=== PATIENT | male | born 1990 | race African-American/Black ===

== ENCOUNTER 2021-08-29 09:17 | Emergency (ER) | payer OTHER, SELFPAY ==
[2021-08-29 10:07] VITALS: BP 119/75; PULSE 84; RESP 18; TEMP 38; O2SAT 97; BMI 23.0
--- NOTE | 2021-08-29 10:55 | ED.URI ---
HPI - URI/Sore Throat General Chief Complaint: Neck Pain/Injury Stated Complaint: pain Time Seen by Provider: 08/29/21 10:52 Source: patient Mode of arrival: ambulatory Limitations: no limitations History of Present Illness HPI Narrative: 2 days of sore throat and chills with difficulty swallowing. Patient is not vaccinated against COVID or flu. patient complaining of left neck lymph node swelling MD elicited complaint: fever and sore throat Onset (ago): day(s) Consistency: constant Severity: moderate Exacerbating factors: swallowing Associated symptoms: fever, chills and sore throat Related Data Previous Rx's Medication Instructions Recorded amoxicillin 875 mg tablet 875 mg PO BID #20 tab 08/29/21 ondansetron HCl 4 mg tablet 4 mg PO Q8H PRN #10 tab 08/29/21 (Zofran) Allergies Allergy/AdvReac Type Severity Reaction Status Date / Time No Known Allergies Allergy Unverified 06/17/20 19:30 [No Known Allergies*] Review of Systems Constitutional: Constitutional: Reports no additional constitutional complaints Eyes: Eyes: Reports no additional eye complaints ENT: Denies dizziness Cardiovascular: Cardiovascular: Reports no additional cardiovascular complaints Respiratory: Respiratory: Reports as per HPI Gastrointestinal: Gastrointestinal: Reports no additional gastrointestinal complaints Musculoskeletal: Musculoskeletal: Reports no additional musculoskeletal complaints Integumentary/Breasts: Skin/Breast: Denies rash Neurologic: Reports system reviewed and no additional complaints, except as documented, Denies dizziness and Denies Sensory deficit (Neuro) Psychiatric: Psychiatric: Denies anxiety PMFSH Social History Social History Advance Directives: No Advance Directives Information Provided: No Physical Exam Vital Signs: Vital Signs: Last Vital Signs Temp 100.4 F 08/29/21 10:07 Pulse 84 08/29/21 10:07 Resp 18 08/29/21 10:07 BP 119/75 08/29/21 10:07 Pulse Ox 97 08/29/21 10:07 Body Mass Index 23.0 Const: Other: feeling ill with chills Nutritional Appearance: average body habitus Orientation/consciousness: oriented to person and patient oriented x3 Limitations: no limitations HENMT: Other: oral pharynx with erythema Head: Yes normal to inspection Ears: external ears normal and TM's normal bilaterally General nose exam: Normal external nose present Eyes: General: appearance normal, both eyes and all related structures Neck: Other: supple, left submandibular lymph node Chest: Chest palpation & inspection: normal inspection of the chest Resp: Auscultation: clear to auscultation bilaterally Cardio: Jugular venous distension: no JVD Rate: regular rate Rhythm: regular rhythm Heart sounds: S1 normal heart sound present and S2 normal heart sound present GI: Inspection: Yes normal to inspection Palpation (GI): Soft to palpation, nontender and No hepatosplenomegaly present Auscultation: normal bowel sounds : General: Yes no CVA tenderness Back/Spine/Pelvis: Back: no CVA tenderness Skin: General skin exam: no rashes or lesions noted Neuro: General: oriented to person and patient oriented x3 Cranial nerves: Yes CN's II-XII intact bilaterally Motor exam (neuro): 5/5 motor strength present throughout Sensory Exam: No Sensory deficit (Neuro) Extrem: General: Yes normal to inspection Psych: Appearance: grossly normal Course Reevaluation(s) Reevaluation #1: patient with positive strep will dc on amoxicillin and zofran Time: 12:05 MDM - URI/Sore Throat Lab Data Labs: Lab Results 08/29/21 08/29/21 Range/Units 11:16 11:17 COVID-19 ([facility]IDA) Negative (Negative) COVID-19 Clin Com See Note S. pyogenes GrpA LEANNE Positive A (Negative) Discharge Plan Discharge Clinical Impression: Strep pharyngitis Patient Disposition: Home, Self-Care Instructions: Pharyngitis (ED), Strep Throat (ED) Prescriptions: New amoxicillin 875 mg tablet 875 mg PO BID Qty: 20 RF: 0 ondansetron HCl [Zofran] 4 mg tablet 4 mg PO Q8H PRN (Reason: nausea and vomiting) Qty: 10 RF: 0 Referrals: Physician,Unknown J [Primary Care Provider] - 10 days
[2021-08-29] MEDS: Ondansetron ODT 4 MG TAB.RAPDIS TRANSLINGU (11:11)
[2021-08-29] MEDS: Acetaminophen 325 MG TABLET 975 MG PO (11:11)
[2021-08-29 11:33] LABS: IDNOW Serial# 08D9AD1C; Strep A Nucleic Acid Positive (Negative)
[2021-08-29 11:45] LABS: COVID-19 Test Negative (Negative); IDNOW Serial# 9DD0AD1C
[2021-08-29 12:23] VITALS: BP 106/57; PULSE 88; RESP 18; TEMP 38.1; O2SAT 93
[2021-08-29] MEDS: Ibuprofen 600 MG TABLET PO (12:26)
[2021-08-29] MEDS: Amoxicillin 500 MG CAPSULE 1000 MG PO (12:37)
== END 2021-08-29 12:41 | disposition home or self-care (01) ==
PROVIDERS: Emergency Provider Emergency Medicine
DX: J02.0 Streptococcal pharyngitis (principal); M54.2 Cervicalgia; R13.10 Dysphagia, unspecified; Z20.822 Contact with and (suspected) exposure to COVID-19
CPT/HCPCS: 36415; 87635; 87651; 99283; 99284

== ENCOUNTER 2021-08-30 02:03 | Emergency (ER) | payer OTHER, SELFPAY ==
[2021-08-30 03:05] VITALS: BP 109/58; PULSE 70; RESP 18; TEMP 37.6; O2SAT 93; BMI 25.1
[2021-08-30 03:31] LABS: Influenza A PCR NEGATIVE (Negative); Influenza B PCR NEGATIVE (Negative); Resp Syncy Virus RNA Qual PCR NEGATIVE (Negative); SARS COV2 PCR INHOUSE NEGATIVE (Negative)
--- NOTE | 2021-08-30 04:51 | ED.GENADULT ---
HPI - General Adult General Chief complaint: Upper Respiratory Symptoms Stated complaint: fever, flu like Time Seen by Provider: 08/30/21 04:51 Source: patient Mode of arrival: ambulatory History of Present Illness HPI narrative: 30-year-old male who was diagnosed with strep though earlier in the day and provided initial antibiotics rate presents with his significant other stating that his headache and sore throat generalized body aches worse at denies any difficulty with swallowing or breathing. Related Data Previous Rx's Medication Instructions Recorded amoxicillin 875 mg tablet 875 mg PO BID #20 tab 08/29/21 ondansetron HCl 4 mg tablet 4 mg PO Q8H PRN #10 tab 08/29/21 (Zofran) Allergies Allergy/AdvReac Type Severity Reaction Status Date / Time No Known Allergies Allergy Unverified 06/17/20 19:30 [No Known Allergies*] Review of Systems Review of Systems: Pertinent positives and negatives as stated in HPI 10 point review systems is otherwise negative. PMFSH Past Medical History Source: nursing notes reviewed Social History Social History Advance Directives: No Advance Directives Information Provided: No Physical Exam Vital Signs: Vital Signs: Last Vital Signs Temp 99 F 08/30/21 05:22 Pulse 72 08/30/21 05:22 Resp 18 08/30/21 05:22 BP 110/80 08/30/21 05:22 Pulse Ox 98 08/30/21 05:22 Body Mass Index 25.1 VITAL SIGNS: Reviewed. GENERAL: Well developed, well nourished, mild distress. HEAD: Normocephalic/atraumatic EYES: PERRLA, EOMI EARS: Ext canals without abnormality, TMs non-bulging and non-erythematous NOSE: Nares patent bilateral OROPHARYNX: no oral lesions noted, posterior pharynx erythema with noted tonsillar enlargement/erythema/exudates, no trismus NECK: Supple, +adenopathy LUNGS: Normal breath sounds. No adventitious sounds or accessory muscle use. SpO2<98> CARDIOVASCULAR: Regular rate and rhythm without noted murmurs ABDOMEN: Soft, non-tender, non-distended with bowel sounds. SKIN: Inspection of the skin reveals no rashes NEUROLOGIC: Alert and oriented x 4. Strength and sensation to light touch were grossly intact x 4. Course Course Course Narrative: 30-year-old male with history and clinical presentation consistent with strep pharyngitis, given combination analgesics and on review of all investigations negative for COVID-19. Patient reassured to give the antibiotics 24-48 hours to began feeling better and in that time frame needs to continue with Tylenol and ibuprofen as well as drinking as much water as tolerable. Medical Decision Making Lab Data Labs: Lab Results 08/30/21 Range/Units 02:47 Influenza Type A (PCR) NEGATIVE (Negative) Influenza Type B (PCR) NEGATIVE (Negative) RSV RNA Qual (PCR) NEGATIVE (Negative) SARS-CoV-2 RNA (RT-PCR) NEGATIVE (Negative) Discharge Plan Discharge Clinical Impression: Strep pharyngitis, Lab test negative for COVID-19 virus Patient Disposition: Home, Self-Care Instructions: Strep Throat (ED) Additional Instructions: 1. Tylenol 1000 mg, orally, every 6 hours as needed for pain control. Do not exceed 4000 mg within 24 hours. 2. Ibuprofen 400 mg, orally with milk or food, every 6 hours as needed for pain control. You may take this with Tylenol for improved symptom relief. 3. Recommend [id number] Cepacol or Sucrets as throat lozenges for additional throat relief. Complete the entire course of your antibiotics. Your tested negative for COVID-19 here today. Prescriptions: No Action amoxicillin 875 mg tablet 875 mg PO BID Qty: 20 RF: 0 ondansetron HCl [Zofran] 4 mg tablet 4 mg PO Q8H PRN (Reason: nausea and vomiting) Qty: 10 RF: 0 Interventions: ED Discharge Assessment Last Done: 08/30/21 05:23 Discharge Date/Time: 08/30/21 05:26
[2021-08-30] MEDS: Acetaminophen 325 MG TABLET 975 MG PO (05:15)
[2021-08-30] MEDS: Throat Lozenge, Medicated LOZENGE 1 LOZENGE MUCOUS MEM (05:15)
[2021-08-30] MEDS: Ibuprofen 400 MG TABLET PO (05:15)
[2021-08-30 05:22] VITALS: BP 110/80; PULSE 72; RESP 18; TEMP 37.2; O2SAT 98
== END 2021-08-30 05:26 | disposition home or self-care (01) ==
PROVIDERS: Emergency Provider Student in an Organized Health Care Education/Training Program
DX: J02.0 Streptococcal pharyngitis (principal); Z20.822 Contact with and (suspected) exposure to COVID-19; R50.9 Fever, unspecified
CPT/HCPCS: 0241U; 36415; 99283; 99284

== ENCOUNTER → 2021-09-15 14:43 | Outpatient (BNVA) | payer OTHER, SELFPAY | PROVIDERS: Visit Provider Orthopaedic Surgery ==

== ENCOUNTER 2024-05-09 10:43 | Emergency (ER) | payer OTHER, SELFPAY ==
[2024-05-09 10:52] VITALS: BP 106/57; PULSE 58; RESP 16; TEMP 37; O2SAT 100; BMI 20.5
[2024-05-09 11:40] LABS: Alanine Aminotransferase 21 U/L (0-40); Albumin Level 4.4 g/dL (3.5-5.0); Alkaline Phosphatase 84 U/L (39-117); Anion Gap 12 (12-20); Aspartate Amino Transferase 28 U/L (5-37); Bilirubin Total 1.9 mg/dL (0.0-1.0); Blood Urea Nitrogen 13 mg/dL (9-16); Calcium 9.2 mg/dL (8.4-10.2); Carbon Dioxide 28 mmol/L (22-29); Chloride 103 mmol/L (96-108); Creatinine Clr Calc Pharmacy 105.7; Estimated Glomerular Filt Rate > 60; Glucose Random 158 mg/dL (60-115); Lipase 20 U/L (8-78); Potassium 4.9 mmol/L (3.3-5.1); Sodium 138 mmol/L (135-145); Total Protein 7.5 g/dL (6.5-8.0)
[2024-05-09 12:04] LABS: Mean Corpuscular Volume 82.9 fL (80.0-98.0); Mean Platelet Volume 11.6 fL (9.4-12.4); NRBC Pct Auto 0.8 /100WBC (0.0-0.2); Platelet Count 256 X10*3/uL (160-400); Red Cell Distribution Width 15.3 % (11.0-16.0)
[2024-05-09 12:05] LABS: WBC ABN SCTR FOR CBC 1
[2024-05-09 12:07] LABS: Hemoglobin 11.4 g/dl (14.0-18.0); Mean Corpuscular Hemoglobin 27.8 pg (27.0-33.0)
[2024-05-09 12:08] LABS: Mean Corpuscular HGB Conc 33.5 g/dl (31.0-36.0)
[2024-05-09 12:16] LABS: Band Neutrophils Percent 7 % (3-5); Basophils Percent Manual 1 % (0-2); Lymphocytes Percent Manual 11 % (20-40); Monocytes Percent Manual 7 % (2-11); Neutrophils Percent Manual 74 % (45-73)
[2024-05-09 12:17] LABS: Nucleated Red Blood Cells 2 /100WBC (0-0); RBC Morphology NOTED; Target Cells 1+ (5-14) /OIF
[2024-05-09 12:20] LABS: Macrocytosis 1+ (5-14) /OIF; Polychromasia 1+ (0-2) /OIF; Schistocytes 1+ (0-2) /OIF
[2024-05-09 12:21] LABS: Large Platelet PRESENT; Platelet Estimate NORMAL (NORMAL); Platelet Morphology Comment NOTED
[2024-05-09 13:02] LABS: Basophils Abs Manual 0.1 X10*3/uL (0.0-0.2); Lymphocytes Absolute Manual 1.2 X10*3/uL (1.2-4.9); Monocytes Absolute Manual 0.8 X10*3/uL (0.1-1.2); Neutrophils Absolute Manual 8.9 X10*3/uL (2.0-8.3)
--- NOTE | 2024-05-09 13:13 | ED.NAVMDI ---
HPI - Nausea/Vomiting/Diarrhea General Chief complaint: Nausea/Vomiting/Diarrhea Stated complaint: stomach ache Time Seen by Provider: 05/09/24 12:32 Source: patient Mode of arrival: ambulatory Limitations: no limitations History of Present Illness HPI Narrative: Patient is a 33-year-old male who presents to the emergency department for evaluation. He reports over the past 4 days he has been feeling tired, experiencing nausea but able to tolerate a predominantly clear liquid diet without difficulty. He has had a single episode of bilious emesis that occurred 4 days ago. He endorses subjective fever. Had a bowel movement yesterday which was normal. Denies constipation or diarrhea. Denies concern for sexually transmitted infections or penile discharge, however he is requesting testing. When asked if he is having any urinary symptoms he does express having ?a pinch? pointing to his suprapubic region when he is urinating. He denies any recreational drug or alcohol usage. He admits to a history of similar symptoms in the past when he had COVID-19. He denies URI symptoms or known sick contacts. Patient reports that a friend told him that he appeared jaundiced Related Data Previous Rx's ?Medication ?Instructions ?Recorded amoxicillin 875 mg tablet 875 mg PO BID #20 tabs 08/29/21 ondansetron HCl 4 mg tablet 4 mg PO Q8H PRN nausea and 08/29/21 (Zofran) vomiting #10 tabs Allergies Allergy/AdvReac Type Severity Reaction Status Date / Time No Known Allergies Allergy Verified 05/09/24 10:54 [No Known Allergies*] Review of Systems Review of Systems: Yes all other systems are reviewed and are negative PMFSH Past Medical History Attestation statement: The following information was validated with the patient. Source: old records reviewed Physical Exam Vital Signs: Vital Signs: Last Vital Signs Temp 98.6 F 05/09/24 15:12 Pulse 58 05/09/24 15:12 Resp 16 05/09/24 15:12 BP 106/57 L 05/09/24 15:12 Pulse Ox 100 05/09/24 15:12 O2 Del Method Room Air 05/09/24 15:12 BMI result Body Mass Index 20.5 Appearance: Alert.?Oriented to person, place and time. No acute distress.?Normal affect. Eyes: Pupils equal, round and reactive to light.??mild scleral icterus ENT: Pharynx normal.?? Neck: Normal inspection.? Neck supple.?? CVS: Heart sounds normal. Normal heart rate and rhythm.? Pulses normal.?? Respiratory: No respiratory distress.? Lung sounds clear to auscultation bilaterally?? Abdomen: Soft and non-tender. Negative Rainey sign. No rebound tenderness at McBurney's point. No CVA tenderness. Normoactive bowel sounds. No pulsatile mass.?? Skin: Skin warm and dry.? Normal skin color.? Extremities: No lower extremity edema.? No calf ttp? Neuro: Moves all extremities spontaneously. Sensation intact bilaterally. CN II-XII intact. No focal neuro deficits. Ambulates with normal steady gait. Course Reevaluation(s) Reevaluation #1: Urinalysis is without evidence of infection. Found to be COVID-19 positive. As mentioned in MDM, unconjugated hyperbilirubinemia direct T bili normal, likely Gilbert's syndrome, suspect this is less likely secondary to biliary obstruction, intrahepatic cholestasis, hepatocellular injury for inherited condition. I will consult with Gastroenterology for further guidance, considering hepatitis panel, and/or ultrasound felt necessary at however his examination benign, and outpatient follow-up. Reevaluation #2: Spoke with Dr. House who agrees that patient may follow-up out patient, likely Gilbert's syndrome exacerbated by infection. Would defer ultrasound at this time, Medications Administered Discontinued Medications Generic Name Dose Route Start Last Admin Trade Name Freq PRN Reason Stop Dose Admin Ondansetron HCl 4 mg 05/09/24 13:24 05/09/24 13:37 Ondansetron Odt 4 Mg Tab.Rapdis TRANSLINGU 05/09/24 13:25 4 mg ONCE ONE Administration Medical Decision Making Medical Decision Making [facility] Narrative: Patient is a 33-year-old male who presents emergency department for evaluation of generalized fatigue, nausea single episode of vomiting in lower abdominal discomfort as per HPI. Overall he appears well, nontoxic, afebrile. His abdominal examination is benign. Although his friend expressed a concern for him appearing jaundiced, on my evaluation he may perhaps have a very mild scleral icterus, on examination of the palms of his hands and soles of his feet i do not appreciate any jaundice. On review of serum labs obtained prior to my assumption of care he is found to have a mild leukocytosis of 11,000 with left shift, normocytic anemia that does not meet transfusion criteria, no thrombocytopenia. No electrolyte derangement. No NORBERTO. Elevated total bilirubin of 1.9 otherwise unremarkable LFTs/lipase, pending add on a direct bili. Urinalysis and urine chlamydia/gonorrhea testing pending. Differential Diagnosis Differential Diagnoses: The differential diagnosis associated with the presentation includes (Hepatitis, cholecystitis, cholelithiasis, gastroenteritis,) Admission/Observation Consideration of admission/observation: Escalation of care including admission/observation considered Consult Healthcare Provider Management of the patient was discussed with: Engineering Production Liaison (See course narrative; gastroenterology) Lab Data MDM Lab Attestation statement: I reviewed the patient's lab results. (See narrative above) 05/09/24 11:10 05/09/24 11:10 Labs: Lab Results 05/09/24 05/09/24 05/09/24 Range/Units 11:10 13:39 13:40 WBC 11.0 H (4.8-10.8) X10*3/uL RBC 4.10 L (4.60-5.80) X10*6/uL Hgb 11.4 L (14.0-18.0) g/dl Hct 34.0 L (42.0-52.0) % MCV 82.9 (80.0-98.0) fL MCH 27.8 (27.0-33.0) pg MCHC 33.5 (31.0-36.0) g/dl RDW 15.3 (11.0-16.0) % Plt Count 256 (160-400) X10*3/uL MPV 11.6 (9.4-12.4) fL Immature Gran % (Auto) Cancelled Neut % (Auto) Cancelled Lymph % (Auto) Cancelled [place] % (Auto) Cancelled Eos % (Auto) Cancelled Baso % (Auto) Cancelled Lymph # (Auto) Cancelled [place] # (Auto) Cancelled Eos # (Auto) Cancelled Baso # (Auto) Cancelled Abs Immat Gran (auto) Cancelled Absolute Neuts (auto) Cancelled Absolute Nucleated RBC 0.090 H (0.0-0.012) X10*3/uL Nucleated RBC % (auto) 0.8 H (0.0-0.2) /100WBC Neutrophils % (Manual) 74 H (45-73) % Band Neutrophils % 7 H (3-5) % Lymphocytes % (Manual) 11 L (20-40) % Monocytes % (Manual) 7 (2-11) % Basophils % (Manual) 1 (0-2) % Abs Neuts (Manual) 8.9 H (2.0-8.3) X10*3/uL Lymphocytes # (Manual) 1.2 (1.2-4.9) X10*3/uL Monocytes # (Manual) 0.8 (0.1-1.2) X10*3/uL Basophils # (Manual) 0.1 (0.0-0.2) X10*3/uL Nucleated RBCs 2 H (0-0) /100WBC Platelet Estimate NORMAL (NORMAL) Large Platelets PRESENT Plt Morphology Comment NOTED RBC Morphology NOTED Polychromasia 1+ (0-2) /OIF Macrocytosis 1+ (5-14) /OIF Target Cells 1+ (5-14) /OIF Schistocytes 1+ (0-2) /OIF Sodium 138 (135-145) mmol/L Potassium 4.9 (3.3-5.1) mmol/L Chloride 103 (96-108) mmol/L Carbon Dioxide 28 (22-29) mmol/L Anion Gap 12 (12-20) BUN 13 (9-16) mg/dL Creatinine 0.92 (0.5-1.4) mg/dL Estim Creat Clear Calc 105.7 Estimated GFR > 60 Random Glucose 158 H (60-115) mg/dL Calcium 9.2 (8.4-10.2) mg/dL Total Bilirubin 1.9 H (0.0-1.0) mg/dL Direct Bilirubin 0.4 (0.0-0.5) mg/dL AST 28 (5-37) U/L ALT 21 (0-40) U/L Alkaline Phosphatase 84 (39-117) U/L Total Protein 7.5 (6.5-8.0) g/dL Albumin 4.4 (3.5-5.0) g/dL Lipase 20 (8-78) U/L Urine Color Yellow Urine Appearance Clear Urine pH 8.0 (5.0-9.0) Ur Specific [place] 1.015 (1.005-1.025) Urine Protein Negative (Neg-Trace) mg/dL Urine Glucose (UA) Negative (Negative) mg/dL Urine Ketones Negative (Negative) mg/dL Urine Blood Negative (Negative) Urine Nitrite Negative (Negative) Ur Leukocyte Esterase Negative (Negative) Chlam trachomat DNA PCR NOT DETECTED (Not Detect.) Influenza Type A (PCR) NEGATIVE (Negative) Influenza Type B (PCR) NEGATIVE (Negative) N.gonorrhoeae DNA (PCR) NOT DETECTED (Not Detect.) RSV RNA Qual (PCR) NEGATIVE (Negative) SARS-CoV-2 RNA (RT-PCR) POSITIVE A (Negative) Discharge Plan Discharge Clinical Impression: COVID-19, Indirect hyperbilirubinemia Patient Disposition: Home, Self-Care Instructions: COVID-19 (Coronavirus Disease 2019) (ED) Additional Instructions: One or blood markers was elevated today, your bilirubin level. It is likely that this has been brought on from your COVID-19 infection. This can cause yellowing of your skin; palms of your hands and feet, or yellowing to the whites of your eyes. It is possible this is due to a condition called Gilbert's syndrome Please contact the newsstand vendor office to arrange for a follow-up outpatient to assure that this normalizes, they may consider further testing has they feel necessary. Please be sure to rest over the next few days, follow a clear liquid diet followed by a bland diet Introduce a bland diet including crackers, bananas, rice, soup, toast, and boiled vegetables. This may progress to plain baked or boiled chicken or turkey. Avoid dairy products or foods high in fat or grease. A prescription for Zofran was sent to your pharmacy to help with your nausea. Prescriptions: No Action amoxicillin 875 mg tablet 875 mg PO BID Qty: 20 0RF ondansetron HCl [Zofran] 4 mg tablet 4 mg PO Q8H PRN (Reason: nausea and vomiting) Qty: 10 0RF Referrals: [facility] MD [Physician] - Interventions: ED Discharge Assessment Last Done: 05/09/24 15:12 Discharge Date/Time: 05/09/24 15:13 Print Language: Panamanian
[2024-05-09] MEDS: Ondansetron ODT 4 MG TAB.RAPDIS TRANSLINGU (13:37)
[2024-05-09 13:47] LABS: Appearance Urine Clear; Color Urine Yellow; Glucose Urine UA Negative (Negative); Leukocyte Esterase Urine Negative (Negative); Nitrite Urine Negative (Negative); Specific Gravity - Urine 1.015 (1.005-1.025); Urine Blood Negative (Negative); Urine Ketones Negative (Negative); Urine Protein Negative (Neg-Trace)
[2024-05-09 14:12] LABS: Bilirubin Direct 0.4 mg/dL (0.0-0.5)
[2024-05-09 14:24] LABS: Influenza A PCR NEGATIVE (Negative); Influenza B PCR NEGATIVE (Negative); Resp Syncy Virus RNA Qual PCR NEGATIVE (Negative); SARS COV2 PCR INHOUSE POSITIVE (Negative)
[2024-05-09 15:12] VITALS: BP 106/57; PULSE 58; RESP 16; TEMP 37; O2SAT 100
[2024-05-09 15:14] LABS: CT PCR NOT DETECTED (Not Detect.); NG PCR NOT DETECTED (Not Detect.)
[2024-05-11 04:01] LABS: HBS Num1 0.53 mIU/mL (0-7.99); HBc Num1 0.07 S/CO (0.00-0.79); HBsAGNum1 0.35 S/CO (0.00-0.99); Hepatitis B Core Antibody Nonreactive (Nonreactive); Hepatitis B Surface Antigen Negative (Negative); ~HepC Num1 0.12 S/CO (0.00-0.79); ~Hepatitis A Antibody IgM Nonreactive (Nonreactive); ~Hepatitis B Surface Antibody NONREACTIVE (Nonreactive); ~Hepatitis C Antibody Nonreactive (Nonreactive)
== END 2024-05-09 15:13 | disposition home or self-care (01) ==
PROVIDERS: Nurse Practitioner Family; Emergency Provider Student in an Organized Health Care Education/Training Program
DX: U07.1 COVID-19 (principal); E80.6 Other disorders of bilirubin metabolism
CPT/HCPCS: 0241U; 36415; 80053; 81003; 82248; 83690; 85007; 85025; 85027; 86704; 86706; 86709; 86803; 87340; 87491; 87591; 99283